=== PATIENT | male | born 1970 | race Caucasian/White ===

== ENCOUNTER 2017-11-03 14:05 | Emergency (ER) | payer BC ==
[~2017-11-03] VITALS: Ht 170.2 cm; Wt 98.7 kg
[~2017-11-03 14:05] MED LIST: EXCEDRIN MIGRA1 EAC3 PO; FIORICET,ESG1 TABLET PO; MOTRIN400 MG PO; MOTRIN800 MG PO; RELPAX20 MG PO; TRAMADOL HCL50 MG PO
[2017-11-03 15:13] LABS: HEMATOCRIT 44.9 % (38.0-50.0); HEMOGLOBIN 16.5 G/DL (12.5-16.6); MCH 31.5 PG (29.0-34.0); MCHC 36.7 G/DL (30.0-36.0); MCV 85.9 FL (86-99); PLATELET COUNT 226 K/uL (156-360); RBC DIS.WIDTH-CV 12.8 % (11.8-14.6); RBC DIS.WIDTH-SD 39.8 % (39-53); RED BLOOD COUNT 5.23 M/uL (4.00-5.50)
[2017-11-03 15:32] LABS: CHLORIDE 103 mEq/L (99-109); POTASSIUM 3.6 mEq/L (3.7-5.4); SODIUM 140 mEq/L (136-147)
[2017-11-03 15:33] LABS: GLUCOSE 109 mg/dL (70-99)
[2017-11-03 15:37] LABS: CREATININE 0.9 mg/dL (0.6-1.3); GFR ESTIMATE (CALCULATED) > 59 mL/min/ (58.99-99999)
[2017-11-03 15:38] LABS: UREA NITROGEN (BUN) 10 mg/dL (9-23)
[2017-11-03] MEDS ORDERED: VALIUM5 MG PO (16:40)
[2017-11-03] MEDS ORDERED: ZOFRAN ODT4 MG PO (16:40)
[2017-11-03 16:52] VITALS: BP 126/79
== END 2017-11-03 16:53 | disposition home or self-care (01) ==
LOC: EME 14:05
DX: R51 Headache (principal); R11.2 Nausea with vomiting, unspecified; Z87.891 Personal history of nicotine dependence; Z88.0 Allergy status to penicillin
CPT/HCPCS: 70450; 70487; 80048; 85027; 99281; 99285; J1200; J1885; J2765; J7030